=== PATIENT | female | born 1965 | race Caucasian/White ===

== ENCOUNTER 2019-11-11 11:30 | Outpatient (CLI) | payer OTHER, SELFPAY ==
--- NOTE | ~2019-11-11 | MM_ITS ---
EXAMINATION: MM screening mae BI w avinash HISTORY: Screening mammogram TECHNIQUE: Craniocaudal and mediolateral oblique 3-D tomosynthesis images were obtained and synthetic 2-D images were generated. CAD analysis was submitted and interpreted. COMPARISON: Comparison to multiple prior studies sequentially, with oldest reviewed study dated 03/2017. BREAST PARENCHYMAL COMPOSITION: There are scattered areas of fibroglandular density. FINDINGS: There is no evidence of suspicious mass, calcification, or architectural distortion to sugg est malignancy in either breast. There has been no suspicious interval change. IMPRESSION: 1. No mammographic evidence of malignancy. 2. Recommend routine screening mammography in one year. BI-RADS Category 1: Negative Reviewed, dictated and finalized at location A. 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
== END 2019-11-11 11:31 | disposition home or self-care (01) ==
PROVIDERS: PCP Family Medicine; Visit Provider Student in an Organized Health Care Education/Training Program
DX: Z12.31 Encounter for screening mammogram for malignant neoplasm of breast (principal)
CPT/HCPCS: 77063; 77067

== ENCOUNTER 2020-09-29 09:46 | Emergency (ER) | payer OTHER, SELFPAY ==
[2020-09-29 10:03] VITALS: BP 118/73; PULSE 66; RESP 18; TEMP 36.2; O2SAT 98
--- NOTE | 2020-09-29 11:45 | ED.DENTAL ---
HPI - Dental/Oral General Chief complaint: Dental/Oral Stated complaint: tooth pain/diarrhea Time Seen by Provider: 09/29/20 10:23 Source: patient Mode of arrival: ambulatory Limitations: no limitations History of Present Illness HPI Narrative: Patient is a 54-year-old female who presents to emergency department for evaluation of left-sided dental pain has been present for roughly a week has also been having some intermittent diarrhea patient denies any sick contacts rectal bleeding or melena. Patient notes that she has had some slight congestion and ear pain but is unsure as to whether or not this is attributable to her dental pain all of her symptoms began to begin when she had dental pain Related Data Home Medications Medication Instructions Recorded Confirmed amlodipine 5 mg tablet 5 mg PO DAILY 11/03/19 aspirin 81 mg tablet,delayed 81 mg PO DAILY 11/03/19 release atorvastatin 40 mg tablet 40 mg PO DAILY 11/03/19 carvedilol 12.5 mg tablet 12.5 mg PO Q12H 11/03/19 chlorthalidone 25 mg tablet 25 mg PO DAILY 11/03/19 hydrocortisone applic TOPICAL 09/29/20 metformin mg 09/29/20 Allergies Allergy/AdvReac Type Severity Reaction Status Date / Time sertraline AdvReac Intermediate Itching Verified 09/29/20 10:13 Review of Systems Review of Systems: All systems reviewed & are unremarkable except as noted in HPI and below PMFSH Past Medical History Medical History (Updated 09/29/20 @ 11:50 by Zain Vital PA-C) Diabetes Diarrhea High cholesterol Hypertension Vaginal delivery x 3 Surgical History Surgical History History of dilation and curettage History of intravascular stent placement History of tubal ligation Family History Family History Grandparent Diabetes mellitus Mother Hypertension Social History Social History Smoking status: Current every day smoker Second hand tobacco smoke exposure: No Alcohol intake: never Gender identity (if verbalized by the patient): Female Exam Narrative: Exam Narrative: GENERAL: Well-appearing, well-nourished, and in no acute distress. HEAD: Normocephalic, atraumatic. EYES: PERRLA and EOMI. ENT: Nares clear, no rhinorrhea or epistaxis. Mucous membranes moist. Patient with dental caries on the left side no swelling of the gums or face floor of the mouth is soft uvula is midline no trismus or drooling CHEST: Clear to auscultation. No respiratory distress. No wheezes rales or rhonchi HEART: Regular rate and rhythm. No murmur heard. Normal peripheral pulses. ABDOMEN: Soft, nontender, nondistended SKIN: Warm, dry, no rash. NEURO: No focal deficits. Alert and oriented x3. PSYCH: Normal mood and affect. Course Course Emergency Course: Patient will be referred back to primary care and dentistry for further evaluation of her symptoms will be treated symptomatically felt appropriate for outpatient reevaluation afebrile nontoxic-appearing no distress tolerating p.o. intake. Patient agrees with this plan she is afebrile nontoxic-appearing no distress is noted and has been provided with reasons to return Vital Signs Vital signs: Vital Signs Temperature 97.1 F L 09/29/20 10:03 Pulse Rate 66 09/29/20 10:03 Respiratory Rate 18 09/29/20 10:03 Blood Pressure 118/73 09/29/20 10:03 Pulse Oximetry 98 09/29/20 10:03 Temperature 97.1 F L 09/29/20 10:03 Pulse Rate 66 09/29/20 10:03 Respiratory Rate 18 09/29/20 10:03 Blood Pressure 118/73 09/29/20 10:03 Pulse Oximetry 98 09/29/20 10:03 MDM - Dental/Oral MDM Narrative Medical decision making narrative: Patient will be treated for her dental complaints as well as symptomatically for other complaints advised to return if symptoms worsen or concerns Discharge Plan Discharge Clinical Impression: Dental car
[2020-09-29 12:14] VITALS: BP 132/64; PULSE 68; RESP 17; O2SAT 100
== END 2020-09-29 12:15 | disposition home or self-care (01) ==
PROVIDERS: Emergency Provider Emergency Medicine; PCP Family Medicine
DX: K02.9 Dental caries, unspecified (principal); R19.7 Diarrhea, unspecified; E11.9 Type 2 diabetes mellitus without complications; E78.00 Pure hypercholesterolemia, unspecified; I10 Essential (primary) hypertension; Z79.82 Long term (current) use of aspirin; Z79.84 Long term (current) use of oral hypoglycemic drugs; F17.200 Nicotine dependence, unspecified, uncomplicated
CPT/HCPCS: 99283

== ENCOUNTER 2020-10-04 08:44 | Emergency (ER) | payer OTHER, SELFPAY ==
--- NOTE | ~2020-10-04 | XR_ITS ---
EXAMINATION: XR chest 2V DATE: 10/04/2020 09:14 INDICATION: Right posterior chest pain. TECHNIQUE: Frontal and lateral views of the chest were obtained. COMPARISON: Chest 2 views 09/25/2016, CT abdomen and pelvis 11/30/2016 FINDINGS: The chest demonstrates clear lungs without pneumonia, pleural effusion, or pneumothorax. Th e heart size is normal. There is mild chronic anterior wedging of T11 and T12 vertebral bodies. IMPRESSION: 1. No acute cardiopulmonary disease. Reviewed, dictated and finalized at location B. MANAGER
--- NOTE | ~2020-10-04 | CT_ITS ---
EXAMINATION: CTA chest PE protocol EXAM DATE: 10/04/2020 09:59 INDICATION: Chest pain with shortness of air. TECHNIQUE: Spiral CTA of the chest (pulmonary arteries) was performed with 100 cc Omnipaque 350 intr avenous contrast injection. Images were acquired during the pulmonary arterial phase. Coronal maxi mum intensity projection 3D-reconstructions were created by the technologist on dedicated workstation . Axial, coronal and sagittal reformatted images were reviewed. The dose-length product (DLP) for t his examination was 140.42 mGy-cm. The exposure was tailored according to patient size (auto mA exp osure control), and iterative reconstruction (ASIR) was used as additional dose reduction technique. There is no prior study for comparison. FINDINGS: Mild to moderate apical emphysema. Pulmonary arteries are well opacified and without intral uminal filling defects. No thoracic aortic dissection. The lungs are clear. There are no pleural or pericardial effusions. Tracheobronchial tree is patent. There is no mediastinal, hilar or axi llary lymphadenopathy. There is no pneumothorax. Heart normal in size. No evidence of coronary arterial calcification. Upper abdomen is unremarkable. There is thoracic spondylosis without osteo blastic or osteolytic lesions identified. IMPRESSION: No pulmonary emboli or acute cardiopulmonary findings. Mild to moderate emphysema. Reviewed, dictated and finalized at location A. 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 Mild to mode rate emphysema.
[2020-10-04 08:49] VITALS: BP 154/77; PULSE 71; RESP 15; TEMP 36.6; O2SAT 99
--- NOTE | 2020-10-04 08:49 | ECG_ITS ---
Measurements Intervals [place] Rate: 72 P: 34 CA: 206 QRS: -13 QRSD: 89 T: 13 QT: 390 QTc: 428 Interpretive Statements SINUS RHYTHM LEFT VENTRICULAR HYPERTROPHY AND ST-T CHANGE CANNOT RULE OUT SEPTAL INFARCT, AGE INDETERMINATE BASELINE ARTIFACT- I, II, AVR, AVL, AVF, V1-V3 ABNORMAL ECG Electronically Signed On 10-04-2020 9:01:03 OPHTHALMIC AIDE by Venkata Holloway D.O.
[2020-10-04 08:56] VITALS: PULSE 62
[2020-10-04] MEDS: ASPIRIN 81 MG CHEWABLE TABLET 243 MG PO (09:00)
[2020-10-04 09:05] LABS: Basophils Absolute Auto 0.1 K/mm3 (0.0-0.1); Basophils Percent Auto 1.4 % (0.2-1.2); Eosinophils Absolute Auto 0.5 K/mm3 (0-0.3); Eosinophils Percent Auto 7.1 % (0-4.4); Hematocrit 40.8 % (37.0-47.0); Hemoglobin 14.4 g/dL (12.0-15.0); Immature Granulocyte Absolute 0.02 K/mm3 (0.00-0.031); Immature Granulocyte Percent A 0.3 % (0-0.5); Lymphocytes Absolute Auto 2.14 K/mm3 (0.9-3.2); Lymphocytes Percent Auto 28.2 % (18.3-44.2); Mean Corpuscular HGB Conc 35.3 g/dl (32-36); Mean Corpuscular Volume 87.7 fl (80-100); Mean Platelet Volume 9.4 fl (7.4-10.4); Monocytes Absolute Auto 0.8 K/mm3 (0.1-0.6); Monocytes Percent Auto 11.1 % (2.6-8.5); Neutrophils Percent Auto 51.9 % (45.5-73.1); Platelet Count Result 295 k/mm3 (150-375); Red Blood Count 4.65 M/mm3 (4.2-5.4); White Blood Count 7.6 K/mm3 (4.5-10.0)
[2020-10-04 09:15] LABS: INR 0.9; Partial Thromboplastin Time 25.3 SECONDS (22.3-36.8); Prothrombin Time 12.4 Seconds (11.1-14.7)
[2020-10-04] MEDS: KETOROLAC 15 MG/ML VIAL (*BKC) IV PUSH (09:16)
[2020-10-04 09:19] LABS: D Dimer 0.64 ug/mL (<0.48)
[2020-10-04 09:23] LABS: Anion Gap 9 mmol/L (8-16); Blood Urea Nitrogen 15 mg/dL (7-17); Calcium 9.9 mg/dL (8.4-10.2); Carbon Dioxide 31 mmol/L (22-30); Chloride 93 mmol/L (98-107); Estimated Glomerular Filt Rate > 60; Glucose 124 mg/dL (65-105); Potassium 2.7 mmol/L (3.4-5.0); Sodium 133 mmol/L (137-145)
[2020-10-04 09:29] LABS: Troponin I < 0.012 ng/mL (0.000-0.034)
[2020-10-04] MEDS: POTASSIUM CHLORIDE 20 MEQ TABLET 40 MEQ PO (09:41)
[2020-10-04 09:42] VITALS: BP 159/84; PULSE 69; RESP 18; O2SAT 97
--- NOTE | 2020-10-04 10:32 | ED.GENADULT ---
HPI - General Adult General Chief complaint: Chest Pain Stated complaint: chest tightness Time Seen by Provider: 10/04/20 08:52 History of Present Illness HPI narrative: Patient is a 54-year-old female who presents ER with pain in her right back that radiates around her chest wall into her chest causing central chest tightness. Intermittent. Worse with movements. It can occasionally be relieved by stretching. No exertional chest pain shortness of breath. Is also is occurred while at rest. Denies history of coronary disease but does have a renal stent. Denies fevers or chills or sweats. No productive cough. No lower extremity swelling. Pain is sometimes worse with deep breaths. Related Data Home Medications Medication Instructions Recorded Confirmed amlodipine 5 mg tablet 5 mg PO DAILY 11/03/19 aspirin 81 mg tablet,delayed 81 mg PO DAILY 11/03/19 release atorvastatin 40 mg tablet 40 mg PO DAILY 11/03/19 carvedilol 12.5 mg tablet 12.5 mg PO Q12H 11/03/19 chlorthalidone 25 mg tablet 25 mg PO DAILY 11/03/19 hydrocortisone applic TOPICAL 09/29/20 metformin mg 09/29/20 Allergies Allergy/AdvReac Type Severity Reaction Status Date / Time sertraline AdvReac Intermediate Itching Verified 10/04/20 08:57 Review of Systems Review of Systems: All systems reviewed & are unremarkable except as noted in HPI and below Constitutional: Constitutional: Denies chills, Denies fever(s) and Denies weakness ENT: Denies nasal congestion Cardiovascular: Cardiovascular: Reports chest pain, Denies rapid heart rate and Denies radiating jaw, neck or arm pain Respiratory: Respiratory: Denies cough and Denies dyspnea Comments: Pain with deep breath Gastrointestinal: Gastrointestinal: Denies abdominal pain, Reports diarrhea (10/01/2020.), Denies nausea and Denies vomiting [facility] Past Medical History Medical History (Updated 10/04/20 @ 12:21 by Neil Christiansen MD) Diabetes Diarrhea High cholesterol Hypertension Vaginal delivery x 3 Surgical History Surgical History History of dilation and curettage History of intravascular stent placement History of tubal ligation Family History Family History Grandparent Diabetes mellitus Mother Hypertension Social History Social History Smoking status: Current every day smoker Second hand tobacco smoke exposure: No Alcohol intake: never Gender identity (if verbalized by the patient): Female Exam Narrative: Exam Narrative: GENERAL: Well-appearing, well-nourished, and in no acute distress. HEAD: Normocephalic, atraumatic. EYES: PERRL and EOMI. CHEST: Clear to auscultation. No respiratory distress. HEART: Regular rate and rhythm. Normal peripheral pulses. ABDOMEN: Soft, nontender, nondistended. EXTREMITIES: Normal range of motion. No edema. SKIN: Warm, dry, no rash. NEURO: Alert and oriented x3. Course Course Emergency Course: Patient and family informed of results. She is received oral potassium replacement. No PE. I will attempt to contact the patient's primary care physician who cannot be contacted but we did leave a message for his nurse. Recommend discontinuation of chlorthalidone. Will order repeat BMP for Saturday and have labs forwarded to the PCPs office. Patient has scheduled follow-up on 10/10/20. Vital Signs Vital signs: Vital Signs Temperature 97.8 F 10/04/20 08:49 Pulse Rate 71 10/04/20 08:49 Respiratory Rate 15 10/04/20 08:49 Blood Pressure 154/77 H 10/04/20 08:49 Pulse Oximetry 99 10/04/20 08:49 Temperature 97.8 F 10/04/20 08:49 Pulse Rate 60 10/04/20 11:54 Respiratory Rate 13 10/04/20 11:54 Blood Pressure 112/70 10/04/20 11:54 Pulse Oximetry 98 10/04/20 11:54 Medical Decision Making Vital Signs Vital Signs: Vital Signs Temp
[2020-10-04 10:50] VITALS: PULSE 61; RESP 15; O2SAT 99
[2020-10-04 11:54] VITALS: BP 112/70; PULSE 60; RESP 13; O2SAT 98
[2020-10-04 12:18] LABS: Troponin I < 0.012 ng/mL (0.000-0.034)
[2020-10-04 12:36] VITALS: BP 97/61; PULSE 66; RESP 24; O2SAT 99
== END 2020-10-04 12:37 | disposition home or self-care (01) ==
PROVIDERS: Emergency Provider Emergency Medicine; PCP Family Medicine
DX: E87.6 Hypokalemia (principal); R25.2 Cramp and spasm; E11.9 Type 2 diabetes mellitus without complications; E78.00 Pure hypercholesterolemia, unspecified; I10 Essential (primary) hypertension; F17.200 Nicotine dependence, unspecified, uncomplicated; Z79.84 Long term (current) use of oral hypoglycemic drugs; Z79.82 Long term (current) use of aspirin; R94.31 Abnormal electrocardiogram [ECG] [EKG]; I51.7 Cardiomegaly; J43.9 Emphysema, unspecified
CPT/HCPCS: 36415; 71046; 71275; 80048; 84484; 85025; 85380; 85610; 85730; 93005; 96374; 99284; A9270; J1885; Q9967

== ENCOUNTER 2021-06-25 15:28 | Emergency (ER) | payer OTHER, SELFPAY ==
[2021-06-25 15:29] VITALS: BP 153/89; PULSE 81; RESP 18; TEMP 37.1; O2SAT 100
[2021-06-25] MEDS: KETOROLAC (*BKC) 60 MG/2 ML VIAL IM (16:14)
--- NOTE | 2021-06-25 20:43 | ED.DENTAL ---
HPI - Dental/Oral General Chief complaint: Dental/Oral Stated complaint: left lower toothache Time Seen by Provider: 06/25/21 15:34 Source: patient Mode of arrival: ambulatory Limitations: no limitations History of Present Illness HPI Narrative: Patient presents with chief complaint of abscess to the lower breast gumline. She states that the removal was present and antibiotic. She reports that she does not have a dentist presently. Patient states the pain is very intense. She denies any fever, chills, nausea, vomiting, diarrhea. Patient reports having diabetes. Related Data Home Medications Medication Instructions Recorded Confirmed amlodipine 5 mg tablet 5 mg PO DAILY 11/03/19 aspirin 81 mg tablet,delayed 81 mg PO DAILY 11/03/19 release atorvastatin 40 mg tablet 40 mg PO DAILY 11/03/19 carvedilol 25 mg tablet 25 mg PO Q12H 11/08/20 isosorbide dinitrate 30 mg tablet 30 mg PO BID 11/08/20 lactobacillus combination no.9 4 4,000 mmu cells PO DAILY 11/08/20 billion cell capsule metformin 500 mg tablet mg PO BID tablet 11/08/20 [id number] tablet 1 tablet PO DAILY 11/08/20 Allergies Allergy/AdvReac Type Severity Reaction Status Date / Time sertraline AdvReac Intermediate Itching Verified 06/25/21 15:33 Review of Systems Review of Systems: CONSTITUTIONAL: Denies fever, chills, or sweats. EYES: Denies visual changes, redness, or discharge. ENT: Reports dental pain denies rhinorrhea, congestion, sore throat, or otalgia. CARDIOVASCULAR: Denies chest pain, palpitations, or edema. RESPIRATORY: Denies cough or dyspnea. GASTROINTESTINAL: Denies abdominal pain, nausea, vomiting, or diarrhea. GENITOURINARY: Denies dysuria or hematuria. SKIN: Denies rash or itching. MUSCULOSKELETAL: Denies back pain, joint pain, or myalgia. NEUROLOGIC: Denies headache, numbness, dizziness, or weakness. PSYCHIATRIC: Denies anxiety or depression. [facility] Past Medical History Medical History (Updated 06/25/21 @ 16:39 by Darrel Bui PA-C) Diabetes Diarrhea High cholesterol Hypertension Vaginal delivery x 3 Surgical History Surgical History History of dilation and curettage History of intravascular stent placement History of tubal ligation Family History Family History Grandparent Diabetes mellitus Mother Hypertension Social History Social History Smoking status: Light tobacco smoker Second hand tobacco smoke exposure: No Alcohol intake: never Gender identity (if verbalized by the patient): Female Exam Narrative: GENERAL: Well-appearing, well-nourished, and tearful. HEAD: Normocephalic, atraumatic. EYES: PERRLA and EOMI. ENT: Nares clear, no rhinorrhea or epistaxis. Mucous membranes moist. Oropharynx without tonsillar hypertrophy exudate or other lesions. Bilateral TMs pearly hardy nonbulging. There is tenderness with slight erythema to the lower left gumline. Patient has diffuse cavities throughout with some missing teeth. No drainage noted presently. NECK: Supple. Range of motion intact. CHEST: Clear to auscultation. No respiratory distress. No wheezes rales or rhonchi HEART: Regular rate and rhythm. No murmur heard. Normal peripheral pulses. ABDOMEN: Soft, nontender, nondistended, normal active bowel sounds. EXTREMITIES: Normal range of motion. No edema. SKIN: Warm, dry, no rash. NEURO: No focal deficits. Alert and oriented x3. PSYCH: Normal mood and affect. Course Vital Signs Vital signs: Vital Signs Temperature 98.7 F 06/25/21 15:29 Pulse Rate 81 06/25/21 15:29 Respiratory Rate 18 06/25/21 15:29 Blood Pressure 153/89 H 06/25/21 15:29 Pulse Oximetry 100 06/25/21 15:29 Temperature 98.7 F 06/25/21 15:29 Pulse Rate 81 06/25/21 15:29 Respiratory Rate 18 06/25/21 15:29 Blood
== END 2021-06-25 17:00 | disposition home or self-care (01) ==
PROVIDERS: Emergency Provider Emergency Medicine; PCP Family Medicine
DX: K04.7 Periapical abscess without sinus (principal); K08.89 Other specified disorders of teeth and supporting structures; E11.9 Type 2 diabetes mellitus without complications; E78.00 Pure hypercholesterolemia, unspecified; I10 Essential (primary) hypertension; F17.200 Nicotine dependence, unspecified, uncomplicated; Z79.82 Long term (current) use of aspirin; Z79.84 Long term (current) use of oral hypoglycemic drugs
CPT/HCPCS: 96372; 99283; J1885

== ENCOUNTER 2021-06-27 10:09 | Emergency (ER) | payer OTHER, SELFPAY ==
--- NOTE | ~2021-06-27 | CT_ITS ---
EXAMINATION: CT facial bones w con DATE: 06/27/2021 12:59 INDICATION: Jaw abscess. Left facial pain. TECHNIQUE: High resolution computed tomography (CT) of the facial bones was performed with 75 mL Omni paque-350 intravenous contrast. Additional sagittal and coronal reconstructions were performed. Autom ated exposure control and iterative reconstruction technique were employed. The dose-length product w as 309.20 mGy-cm. COMPARISON: None FINDINGS: There is likely fluid soaked gauze/packing material within the left buccal cavity. There appears to b e ulceration which extends deep to the gum line at the left lateral margin of the mandible. There is poor dentition with multiple absent teeth, multiple dental restorations and a few dental caries. The most prominent dental Alix is at the posterior most left mandibular premolar with associated periapi armida erosion at its root which erodes into the left mental foramen. There is overlying enhancing phleg monous change along the lateral margin of the left mandibular ramus but no discrete abscess. Maxillof acial bones are otherwise unremarkable. No fracture. The orbits are normal. Mild mucoperiosteal thick ening at the right maxillary and bilateral ethmoid sinuses. Mastoid air cells and middle ear cavities are clear. No pathologically enlarged maxillofacial or cervical lymphadenopathy. Mild atheroscleroti c calcifications without hemodynamically significant stenosis of the bilateral carotid bulbs and bila teral carotid siphons. The visualized musculature of the head and neck appears otherwise unremarkable . Moderate cervical spondylosis. IMPRESSION: 1. Dental caries and periapical abscess involving the posterior most left mandibular premolar with er osion extending to the left mental foramen with overlying enhancing phlegmonous change along the late ral margin of the left mandible ramus but without a drainable abscess. Reviewed, dictated and finalized at location A. IMPRESSION: 1. Dental caries and periapical abscess involving the posterior most left zion bular premolar with erosion extending to the left mental foramen with overlying enhancing phlegmonous change along the lateral margin of the left mandible lauro us but without a drainable abscess.
[2021-06-27 10:21] VITALS: BP 129/73; PULSE 74; RESP 18; TEMP 36.7; O2SAT 98
[2021-06-27] MEDS: ONDANSETRON HCL ODT 4 MG TABLET PO (10:39)
--- NOTE | 2021-06-27 11:35 | ED.DENTAL ---
HPI - Dental/Oral General Chief complaint: Dental/Oral Stated complaint: tooth infection Time Seen by Provider: 06/27/21 10:18 Source: patient and RN notes reviewed Mode of arrival: ambulatory Limitations: no limitations History of Present Illness HPI Narrative: This is a 55 year old female who presents for evaluation of left jaw swelling. Patient was started on augmentin 2 days ago for possible dental infection. She reports nausea and fatigue but denies fever, chills or shortness of breath. She denies pain with swallowing. Related Data Home Medications Medication Instructions Recorded Confirmed amlodipine 5 mg tablet 5 mg PO DAILY 11/03/19 aspirin 81 mg tablet,delayed 81 mg PO DAILY 11/03/19 release atorvastatin 40 mg tablet 40 mg PO DAILY 11/03/19 carvedilol 25 mg tablet 25 mg PO Q12H 11/08/20 isosorbide dinitrate 30 mg tablet 30 mg PO BID 11/08/20 lactobacillus combination no.9 4 4,000 mmu cells PO DAILY 11/08/20 billion cell capsule metformin 500 mg tablet mg PO BID tablet 11/08/20 [id number]-[id number] tablet 1 tablet PO DAILY 11/08/20 Allergies Allergy/AdvReac Type Severity Reaction Status Date / Time sertraline AdvReac Intermediate Itching Verified 06/27/21 10:24 Review of Systems Review of Systems: All systems reviewed & are unremarkable except as noted in HPI and below PMFSH Past Medical History Medical History (Updated 06/27/21 @ 14:10 by Lorena Pham MD) Diabetes Diarrhea High cholesterol Hypertension Vaginal delivery x 3 Surgical History Surgical History History of dilation and curettage History of intravascular stent placement History of tubal ligation Family History Family History Grandparent Diabetes mellitus Mother Hypertension Social History Social History Smoking status: Light tobacco smoker Second hand tobacco smoke exposure: No Alcohol intake: never Gender identity (if verbalized by the patient): Female Exam Const: General: no acute distress and alert Orientation/consciousness: patient oriented x3 HENMT: Head: normocephalic and atraumatic Ears: TM's normal bilaterally Mouth: Yes lip normal, Yes tongue normal (soft floor of tongue), Yes moist mucous membranes, No trismus, No restricted motion and Yes other (left mandible swelling and tenderness) Teeth and gingiva: caries and other (gum swelling at tooth #20, tenderness) Throat: posterior oropharynx normal, tonsils normal and uvula midline Eyes: Pupils: Equal, round and reactive pupils present EOM: EOMs intact bilaterally Resp: Effort & Inspection: normal respiratory effort and no retractions Auscultation: clear to auscultation bilaterally Cardio: Rate: regular rate Rhythm: regular rhythm Heart sounds: no murmurs Skin: General skin exam: normal color Rashes: no rashes Neuro: General: patient oriented x3, moves all extremities and CN's II-XI intact bilaterally Extrem: General: normal to inspection Psych: Mental Status: mental status grossly normal Affect: normal affect Course Reevaluation(s) Reevaluation #1: PAtient was given dose of clindamycin in ER. I was able to express any purulent discharge . CT shows there is no drainable abscess so she will be changed to different antibiotics. Date: 06/27/21 Time: 14:08 Vital Signs Vital signs: Vital Signs Temperature 98.1 F 06/27/21 10:21 Pulse Rate 74 06/27/21 10:21 Respiratory Rate 18 06/27/21 10:21 Blood Pressure 129/73 06/27/21 10:21 Pulse Oximetry 98 06/27/21 10:21 Temperature 98.4 F 06/27/21 14:53 Pulse Rate 57 L 06/27/21 14:53 Respiratory Rate 18 06/27/21 14:53 Blood Pressure 98/57 L 06/27/21 14:53 Pulse Oximetry 97 06/27/21 14:53 Procedures Abscess I/D oral: Date of Incision: 06/27/21
[2021-06-27 12:18] LABS: Basophils Absolute Auto 0.1 K/mm3 (0.0-0.1); Basophils Percent Auto 0.9 % (0.2-1.2); Eosinophils Absolute Auto 0.3 K/mm3 (0-0.3); Eosinophils Percent Auto 2.8 % (0-4.4); Hematocrit 39.6 % (37.0-47.0); Hemoglobin 13.7 g/dL (12.0-15.0); Immature Granulocyte Absolute 0.02 K/mm3 (0.00-0.031); Immature Granulocyte Percent A 0.2 % (0-0.5); Lymphocytes Absolute Auto 2.74 K/mm3 (0.9-3.2); Lymphocytes Percent Auto 31.1 % (18.3-44.2); Mean Corpuscular HGB Conc 34.6 g/dl (32-36); Mean Corpuscular Hemoglobin 31.7 pg (26-34); Mean Corpuscular Volume 91.7 fl (80-100); Mean Platelet Volume 9.5 fl (7.4-10.4); Monocytes Percent Auto 10.9 % (2.6-8.5); Neutrophils Absolute Auto 4.8 K/mm3 (1.3-6.7); Neutrophils Percent Auto 54.1 % (45.5-73.1); Platelet Count Result 253 k/mm3 (150-375); Red Blood Count 4.32 M/mm3 (4.2-5.4); Red Cell Distribution Width 12.6 % (11.5-14.5); White Blood Count 8.8 K/mm3 (4.5-10.0)
[2021-06-27 12:27] LABS: Alanine Aminotransferase 70 U/L (4-35); Albumin Level 4.4 g/dL (3.5-5.1); Alkaline Phosphatase 107 U/L (38-126); Anion Gap 9 mmol/L (8-16); Aspartate Amino Transferase 50 U/L (14-36); Bilirubin,Total 0.7 mg/dL (0.2-1.3); Blood Urea Nitrogen 11 mg/dL (7-17); Calcium 9.7 mg/dL (8.4-10.2); Carbon Dioxide 26 mmol/L (22-30); Chloride 106 mmol/L (98-107); Estimated Glomerular Filt Rate > 60; Glucose 117 mg/dL (65-110); Potassium 4.3 mmol/L (3.4-5.0); Sodium 141 mmol/L (137-145)
[2021-06-27 14:53] VITALS: BP 98/57; PULSE 57; RESP 18; TEMP 36.9; O2SAT 97
== END 2021-06-27 14:55 | disposition home or self-care (01) ==
PROVIDERS: Emergency Provider General Practice; PCP Family Medicine
DX: K08.89 Other specified disorders of teeth and supporting structures (principal); K05.319 Chronic periodontitis, localized, unspecified severity; E11.9 Type 2 diabetes mellitus without complications; Z79.84 Long term (current) use of oral hypoglycemic drugs; I10 Essential (primary) hypertension; E78.5 Hyperlipidemia, unspecified
CPT/HCPCS: 36415; 41800; 70487; 80053; 85025; 96372; 99284; A9270; Q9967

== ENCOUNTER 2021-07-29 11:37 | Outpatient (CLI) | payer OTHER, SELFPAY ==
--- NOTE | ~2021-07-29 | MM_ITS ---
EXAMINATION: MM screening mae BI w avinash HISTORY: Screening mammogram, family history of breast cancer in her sister. TECHNIQUE: Craniocaudal and mediolateral oblique 3-D tomosynthesis images were obtained and synthetic 2-D images were generated. CAD analysis was submitted and interpreted. COMPARISON: 11/11/2019, 10/31/2018 BREAST PARENCHYMAL COMPOSITION: There are scattered areas of fibroglandular density. FINDINGS: There is no evidence of suspicious mass, calcification, or architectural distortion to sugg est malignancy in either breast. There has been no suspicious interval change. IMPRESSION: 1. No mammographic evidence of malignancy. 2. Recommend routine screening mammography in one year. BI-RADS Category 1: Negative Reviewed, dictated and finalized at location A. 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
== END 2021-07-29 11:38 | disposition home or self-care (01) ==
LOC: ANHIMG 11:38
PROVIDERS: PCP Family Medicine; Visit Provider Student in an Organized Health Care Education/Training Program
DX: Z12.31 Encounter for screening mammogram for malignant neoplasm of breast (principal)
CPT/HCPCS: 77063; 77067

== ENCOUNTER 2022-05-01 00:59 | Day surgery (SDC) | payer OTHER, SELFPAY ==
[2022-04-23 15:18] VITALS: BMI 27.6
[2022-05-01 09:17] VITALS: BP 117/75; PULSE 66; RESP 16; TEMP 36.6; O2SAT 98
[2022-05-01] MEDS: LACTATED RINGERS 1,000 ML 150 ML IV CONT (09:29)
[2022-05-01 09:30] LABS: Glucose Point of Care 145 mg/dl (65-105)
--- NOTE | 2022-05-01 10:00 | PM.HPGS ---
History of Present Illness History of Present Illness Consent: Risks, benefits, and alternatives have been discussed and questions answered. Patient agrees to proceed with procedure. Chief complaint: hemorrhoid, blood in stool Narrative: Ju Mariscal is a 56 year old female with blood in stool probably from hemorrhoids, also she is due to have another colonoscopy Review of Systems Constitutional: Constitutional: Denies headache(s) and Denies weakness Eyes: Eyes: Denies blurry vision ENT: Reports Normal hearing present, Denies headache(s) and Denies neck pain Cardiovascular: Cardiovascular: Denies chest pain and Denies dyspnea Respiratory: Respiratory: Denies dyspnea Gastrointestinal: Gastrointestinal: Reports no additional gastrointestinal complaints Genitourinary: Genitourinary: Denies dysuria Musculoskeletal: Musculoskeletal: Denies neck pain Integumentary/Breasts: Skin/Breast: Denies dry skin Neurologic: Reports Normal hearing present, Denies headache(s) and Denies weakness Psychiatric: Psychiatric: Denies anxiety Endocrine: Endocrine: Denies change in body appearance Hematologic/Lymphatic: Hematologic/Lymphatic: Denies easy bleeding Allergic/Immunologic: Allergic/Immunologic: Denies urticaria [facility] Past Medical History Medical History (Updated 05/01/22 @ 10:01 by Tk Zavala MD) Colon cancer screening Diabetes Diarrhea Hematochezia Hemorrhoid High cholesterol Hypertension Vaginal delivery x 5 Surgical History Surgical History (Reviewed 03/15/22 @ 10:32 by Yvonne Liu [facility]) History of dilation and curettage History of intravascular stent placement History of tubal ligation Family History Family History (Reviewed 03/15/22 @ 10:32 by Yvonne Liu [facility]) Grandparent Diabetes mellitus Mother Hypertension Social History Social History Smoking status: Light tobacco smoker Tobacco type: cigarettes Second hand tobacco smoke exposure: No Alcohol intake: former Substance use: never Substance use type: does not use Living arrangements: with family Gender identity (if verbalized by the patient): Female Spiritual care concerns: No Meds Home Medications and Allergies Home Medications Medication Instructions Recorded Confirmed Type amlodipine 5 mg tablet 5 mg PO DAILY 11/03/19 04/23/22 History aspirin 81 mg tablet,delayed 81 mg PO DAILY 11/03/19 04/23/22 History release atorvastatin 40 mg tablet 40 mg PO DAILY 11/03/19 04/23/22 History potassium chloride 20 mEq 20 meq PO BID #10 tabs 10/04/20 04/23/22 Rx tablet,extended release carvedilol 25 mg tablet 25 mg PO Q12H 11/08/20 05/01/22 History isosorbide dinitrate 30 mg tablet 30 mg PO BID 11/08/20 05/01/22 History metformin 500 mg tablet 500 mg PO BID 11/08/20 04/23/22 History cnzusvsnleia-rgkygmia-cpklfp tablet 1 tablet PO DAILY 11/08/20 04/23/22 History Allergies Allergy/AdvReac Type Severity Reaction Status Date / Time sertraline AdvReac Intermediate Itching Verified 05/01/22 09:13 Vital Signs Vital Signs - 24 hr 05/01/22 09:17 Temperature 97.8 F Pulse Rate 66 Respiratory Rate 16 Blood Pressure 117/75 Pulse Oximetry 98 Oxygen Delivery Room Air Exam Const: General: comfortable and no acute distress HENMT: General nose exam: Normal nares present Eyes: General: appearance normal, both eyes and all related structures Neck: Neck: no JVD Resp: Auscultation: clear to auscultation bilaterally Cardio: Rate: regular rate Rhythm: regular rhythm GI: Inspection: non-distended GI Palp: Yes Soft to palpation Skin: General skin exam: normal color Neuro: General: gait normal Speech: normal speech Extrem: General: normal to inspection Psych: Mental Status: mental status grossly normal Assessment and Plan Assessment and plan (1) Hemorrhoid: Code(s): K64.9 - Unspecified hemo
--- NOTE | 2022-05-01 10:06 | WPDANESEPPF ---
Anes - Initial Pre Proc Eval Procedure: Operation Date: 05/01/22 10:30 Proposed Procedures p Colonoscopy - Tk Zavala MD s [facility] Hemorrhoid Treatment - kT Zavala MD Date/Time: 05/01/22 10:06 Surgeon: Tk Zavala MD Pre Op Diagnosis: hemorrhoid, blood in stool Patient Data Age: 56 Gender: F Height: 1.47 m Weight: 55.9 kg Last Vital Signs Temp 97.8 F 05/01/22 09:17 Pulse 66 05/01/22 09:17 Resp 16 05/01/22 09:17 BP 117/75 05/01/22 09:17 Pulse Ox 98 05/01/22 09:17 O2 Del Method Room Air 05/01/22 09:17 Allergies Allergy/AdvReac Type Severity Reaction Status Date / Time sertraline AdvReac Intermediate Itching Verified 05/01/22 09:13 Home Medications Medication Instructions Recorded Confirmed Type amlodipine 5 mg tablet 5 mg PO DAILY 11/03/19 04/23/22 History aspirin 81 mg tablet,delayed 81 mg PO DAILY 11/03/19 04/23/22 History release atorvastatin 40 mg tablet 40 mg PO DAILY 11/03/19 04/23/22 History potassium chloride 20 mEq 20 meq PO BID #10 tabs 10/04/20 04/23/22 Rx tablet,extended release carvedilol 25 mg tablet 25 mg PO Q12H 11/08/20 05/01/22 History isosorbide dinitrate 30 mg tablet 30 mg PO BID 11/08/20 05/01/22 History metformin 500 mg tablet 500 mg PO BID 11/08/20 04/23/22 History riscemdyvkfn-dzhnzwok-tsbkfb tablet 1 tablet PO DAILY 11/08/20 04/23/22 History Laboratory Tests 05/01/22 09:27 POC Capillary Glucose 145 mg/dl H mg/dl (65-105) Patient hx anesthesia problems: none Family hx anesthesia problems: none Results Review: All pre-operative results and documents have been reviewed as part of the pre-operative evaluation. [facility] Past Medical History Medical History (Updated 05/01/22 @ 10:01 by Tk Zavala MD) Colon cancer screening Diabetes Diarrhea Hematochezia Hemorrhoid High cholesterol Hypertension Vaginal delivery x 5 Surgical History Surgical History History of dilation and curettage History of intravascular stent placement History of tubal ligation Family History Family History Grandparent Diabetes mellitus Mother Hypertension Social History Social History Smoking status: Light tobacco smoker Tobacco type: cigarettes Second hand tobacco smoke exposure: No Alcohol intake: former Substance use: never Substance use type: does not use Living arrangements: with family Gender identity (if verbalized by the patient): Female Spiritual care concerns: No Anes - Eval Final PreProcedure Day of Procedure 05/01/22 10:06 Patient weight: normal Heart: regular rate and rhythm Lungs: clear to auscultation Airway: Mallampati scale class II Neurological: alert and oriented Last oral intake: >/= 8 hours ASA classification: III Emergent: no Anesthetic plan: proceed Anesthesia type and monitoring: general GIVS and standard monitoring Results Review: All pre-operative results and documents have been reviewed as part of the pre-operative evaluation. Informed Consent: The patient's anesthetic plan and its attendant risks and benefits were discussed with the patient/family/POA. Questions were solicited and answers provided to the satisfaction of the patient/family/POA.
[2022-05-01 10:24] VITALS: BP 79/44; PULSE 65; RESP 14; O2SAT 94
--- NOTE | 2022-05-01 10:25 | W.PM.PROC2 ---
Procedure Note - Detailed Date of Procedure 05/01/22 Pre-op Diagnosis hemorrhoid, blood in stool Post-op Diagnosis Same Procedure Performed IRC of internal hemorrhoids Surgeon Tk Zavala MD Findings grade II hemorrhoids, no fissure, no lesions. I introduced anoscope and then advanced IRC probe, hemorrhoids treated 1.5 seconds x7, no complications Description of Procedure as above
[2022-05-01 10:34] VITALS: BP 95/58; PULSE 62; RESP 20; O2SAT 96
[2022-05-01 10:44] VITALS: BP 103/75; PULSE 61; RESP 21; O2SAT 98
== END 2022-05-01 11:12 | disposition home or self-care (01) ==
PROVIDERS: PCP Family Medicine; Visit Provider Internal Medicine Gastroenterology
PROC: 0DJD8ZZ Inspection of Lower Intestinal Tract, Via Natural or Artificial Opening Endoscopic (ICD-10-PCS; CPT 45378; principal; 2022-05-01 10:30)
PROC: (CPT 46930; 2022-05-01 10:30)
DX: K64.1 Second degree hemorrhoids (principal); Z79.82 Long term (current) use of aspirin; Z79.84 Long term (current) use of oral hypoglycemic drugs; E11.9 Type 2 diabetes mellitus without complications; R19.7 Diarrhea, unspecified; K92.1 Melena; E78.00 Pure hypercholesterolemia, unspecified; I10 Essential (primary) hypertension; F17.210 Nicotine dependence, cigarettes, uncomplicated; K57.30 Diverticulosis of large intestine without perforation or abscess without bleeding; K64.8 Other hemorrhoids; K64.4 Residual hemorrhoidal skin tags
CPT/HCPCS: 45378; 46930; 82948; J2704; J7120

== ENCOUNTER 2022-06-11 16:16 | Emergency (ER) | payer OTHER, SELFPAY ==
[2022-06-11 16:29] VITALS: BP 156/87; PULSE 73; RESP 16; TEMP 36.3; O2SAT 100
--- NOTE | 2022-06-11 16:59 | ED.EAR ---
HPI - Ear Problem General Chief complaint: Ear Stated complaint: Left Ear Irritation Time Seen by Provider: 06/11/22 17:30 Source: patient and RN notes reviewed Mode of arrival: ambulatory Limitations: no limitations History of Present Illness HPI Narrative: 56-year-old female presents concern for bilateral ear pain, nasal congestion, rhinorrhea, cough. Reports 4 days symptoms. Reports her members have similar symptoms. She denies xlfh-zqa-owlmjsy dimension. Denies fever, body aches, chills, sweats, drainage from the ear, decreased hearing. MD Complaint: ear pain Related Data Home Medications Medication Instructions Recorded Confirmed amlodipine 5 mg tablet 5 mg PO DAILY 11/03/19 06/11/22 aspirin 81 mg tablet,delayed 81 mg PO DAILY 11/03/19 06/11/22 release atorvastatin 40 mg tablet 40 mg PO DAILY 11/03/19 06/11/22 carvedilol 25 mg tablet 25 mg PO Q12H 11/08/20 06/11/22 isosorbide dinitrate 30 mg tablet 30 mg PO BID 11/08/20 06/11/22 metformin 500 mg tablet 500 mg PO BID 11/08/20 06/11/22 iqnhkerwqlpj-yhhgjnhg-rmvpbx tablet 1 tablet PO DAILY 11/08/20 06/11/22 Allergies Allergy/AdvReac Type Severity Reaction Status Date / Time sertraline AdvReac Intermediate Itching Verified 06/11/22 16:54 Review of Systems Review of Systems: CONSTITUTIONAL: Denies malaise, chills, sweats, or fever. EYES: Denies visual changes, redness, or discharge. ENT: Reports rhinorrhea, congestion, sinus pain, and sore throat. Reports bilateral ear pain CARDIOVASCULAR: Denies chest pain, palpitations, or edema. RESPIRATORY: Reports cough. Denies dyspnea. GASTROINTESTINAL: Denies abdominal pain, nausea, vomiting, diarrhea SKIN: Denies rash or itching. MUSCULOSKELETAL: Denies myalgia. NEUROLOGIC: Denies headache. All systems reviewed & are unremarkable except as noted in HPI and below PMFSH Past Medical History Medical History (Updated 06/11/22 @ 17:47 by Emilia Mar NP) Colon cancer screening Diabetes Diarrhea Hematochezia Hemorrhoid High cholesterol Hypertension Vaginal delivery x 5 Surgical History Surgical History History of dilation and curettage History of intravascular stent placement History of tubal ligation Family History Family History Grandparent Diabetes mellitus Mother Hypertension Social History Social History Smoking status: Light tobacco smoker Tobacco type: cigarettes Second hand tobacco smoke exposure: No Alcohol intake: former Substance use: never Substance use type: does not use Gender identity (if verbalized by the patient): Female Spiritual care concerns: No Comments At time of signature, agree with nursing past medical, surgical, social and family history. There is no relevant family history pertinent to the presenting complaint Exam Narrative: GENERAL: Well-appearing, well-nourished, and in no acute distress. HEAD: Normocephalic EYES: PERRLA, conjunctivae clear ENT: Nares clear, turbinates edematous, clear discharge. Mucous membranes moist. TM erythematous and bulging bilaterally; no tragal tenderness. Oropharynx not erythematous without lesions. Tonsils not enlarged and without exudate, no drooling, no hoarseness, no trismus, uvula midline. NECK: Supple. No lymphadenopathy CHEST: Clear to auscultation, breath sounds equal. No wheezing, rhonchi, rales, or stridor. No respiratory distress, speaks in full sentences. HEART: Regular rate and rhythm. No murmur heard. SKIN: Warm, dry, no rash. NEURO: Alert and oriented x3. PSYCH: Normal mood and affect Course Course Emergency Course: Patient is aware of diagnosis, understands and agrees to treatment plan. Anticipatory guidance given. Patient agrees to follow-up as directed and is aware of reasons to seek care at the emergency department. Sydnee
== END 2022-06-11 18:06 | disposition home or self-care (01) ==
PROVIDERS: Emergency Provider Nurse Practitioner; PCP Family Medicine
DX: H66.003 Acute suppurative otitis media without spontaneous rupture of ear drum, bilateral (principal); R05.9 Cough, unspecified; Z79.82 Long term (current) use of aspirin; E11.9 Type 2 diabetes mellitus without complications; I10 Essential (primary) hypertension; E78.00 Pure hypercholesterolemia, unspecified; Z72.0 Tobacco use
CPT/HCPCS: 99213; G0463

== ENCOUNTER 2022-10-03 12:27 | Outpatient (CLI) | payer OTHER, SELFPAY ==
--- NOTE | ~2022-10-03 | MM_ITS ---
EXAMINATION: MM screening [facility] BI w avinash HISTORY: Screening mammogram TECHNIQUE: Craniocaudal and mediolateral oblique 3-D tomosynthesis images were obtained and synthetic 2-D images were generated. CAD analysis was submitted and interpreted. COMPARISON: 07/29/2021, 11/11/2019, 10/31/2018 bilateral screening mammogram examinations BREAST PARENCHYMAL COMPOSITION: There are scattered areas of fibroglandular density. FINDINGS: There is no evidence of suspicious mass, calcification, or architectural distortion to sugg est malignancy in either breast. There has been no suspicious interval change. IMPRESSION: 1. No mammographic evidence of malignancy. 2. Recommend routine screening mammography in one year. BI-RADS Category 1: Negative Reviewed, dictated and finalized at location B. HT FOLLOWER
== END 2022-10-03 12:28 | disposition home or self-care (01) ==
LOC: ANHIMG 12:29
PROVIDERS: PCP Family Medicine; Visit Provider Student in an Organized Health Care Education/Training Program
DX: Z12.31 Encounter for screening mammogram for malignant neoplasm of breast (principal)
CPT/HCPCS: 77063; 77067

== ENCOUNTER 2023-12-21 08:45 | Emergency (ER) | payer OTHER, SELFPAY ==
--- NOTE | ~2023-12-21 | XR_ITS ---
XR chest 1V portable DATE: 12/21/2023 10:41 INDICATION: Chest pains TECHNIQUE: Portable AP chest on December 21, 2023 at 1034 hours COMPARISON: Prior examinations available from PACS at this time FINDINGS: Normal heart size. Aortic arch calcification. No hilar or mediastinal enlargement. No pulmonary infiltrate or consolidation, pleural effusion or pulmonary vascular congestion or pneumo thorax. Mild thoracic dextroscoliosis. IMPRESSION: No active cardiopulmonary disease Reviewed, dictated and finalized at location A.
[2023-12-21 08:53] VITALS: BP 150/80; PULSE 75; RESP 19; TEMP 36.4; O2SAT 99
[2023-12-21 10:01] LABS: Appearance Urine Clear (Clear); Bilirubin Urine Negative (Negative); Blood Urine Negative (Negative); Color Urine Yellow (Yellow); Glucose Urine UA Negative (Negative); Ketones Urine Negative (Negative); Leukocyte Esterase Ur Negative LEU/UL (Negative); Nitrate Urine Negative (Negative); Protein Urine Negative (Negative); Specific Grav Ur 1.012 (1.001-1.035); Urobilinogen Urine 0.2 mg/dL (<2.0); pH Urine 5.5 (5.0-9.0)
--- NOTE | 2023-12-21 10:03 | ED.BACK ---
HPI - Back Pain/Injury General Chief Complaint: Back Pain/Injury Stated Complaint: flank pain Time Seen by Provider: 12/21/23 08:52 History of Present Illness HPI Narrative: 58-year-old female presenting to the emergency department for evaluation of left back pain that started on . Patient states she does have history of lower back pain has been taking ibuprofen for this with no improvement. Patient states that she had no recent falls or injuries but had worsening left posterior shoulder upper back pain on . Patient also states that does have some chest pain for the same duration. Related Data Home Medications Medication Instructions Recorded Confirmed amlodipine 5 mg tablet 5 mg PO DAILY 11/03/19 06/11/22 aspirin 81 mg tablet,delayed 81 mg PO DAILY 11/03/19 06/11/22 release atorvastatin 40 mg tablet 40 mg PO DAILY 11/03/19 06/11/22 carvedilol 25 mg tablet 25 mg PO Q12H 11/08/20 06/11/22 isosorbide dinitrate 30 mg tablet 30 mg PO BID 11/08/20 06/11/22 metformin 500 mg tablet 500 mg PO BID 11/08/20 06/11/22 vvkayaqrwuno-gijjzmok-vxevzf tablet 1 tablet PO DAILY 11/08/20 06/11/22 famotidine 20 mg tablet 20 mg PO DAILY 02/21/23 gabapentin 100 mg capsule 100 mg PO BID 02/21/23 muizsmak-weqo-uaqf 8 mg-folic 400 1 tablet PO DAILY 02/21/23 mcg-K 50 mcg-lutein 300 mcg tablet ([facility] [place] [facility]) naproxen 500 mg tablet 500 mg PO BID 02/21/23 Allergies Allergy/AdvReac Type Severity Reaction Status Date / Time sertraline AdvReac Intermediate Itching Verified 12/21/23 08:56 Review of Systems Review of Systems: All systems reviewed & are unremarkable except as noted in HPI and below [facility] Past Medical History Medical History (Updated 12/21/23 @ 14:05 by Ezekiel Mendoza MD) ASCUS of cervix with negative high risk HPV Cystocele with rectocele Diabetes Diarrhea Hematochezia Hemorrhoid High cholesterol History of abnormal cervical Pap smear Hypertension Vaginal delivery x 5 Vaginal Pap smear with ASC-US Surgical History Surgical History History of dilation and curettage History of intravascular stent placement History of tubal ligation Family History Family History Grandparent Diabetes mellitus Mother Hypertension Social History Social History Smoking status: Light tobacco smoker Tobacco type: cigarettes Second hand tobacco smoke exposure: No Alcohol intake: former Alcohol use details: Stop using alcohol 25 years ago Substance use: never Substance use type: does not use Lack of Transportation: No Lack of Food: Never True Current Housing: I Have Housing Concerned About Future Housing: No Difficulty Paying Gas/Electric Bills: No Difficulty Paying for Meds: No Currently Unemployed: No Education: Grade School Difficulty w/ Childcare or Family Care: No Living arrangements: with family Occupation/Education: retired Gender identity (if verbalized by the patient): Female Sexual Orientation (if Verbalized by the Patient): Straight or Heterosexual Spiritual care concerns: No Exam Narrative: APPEARANCE: Well appearing, no pain, no distress, well-nourished. HEAD: normocephalic, atraumatic. EYES: PERRLA/EOMI, conjunctivae clear. NOSE: Normal no drainage EARS:TMS clear with good light reflex. THROAT: Pharynx clear, no exudate. NECK: Supple. No adenopathy, no masses. RESPIRATORY: Airway patent, respirations nonlabored. Clear to auscultation bilaterally, no rales, rhonchi, wheezing. CARDIOVASCULAR: Regular rate and rhythm without murmurs rubs or gallops. ABDOMINAL: Soft, nontender, nondistended, normal bowel sounds MUSCULOSKELETAL: Moves all extremities. Strength/ROM intact, No edema, No calf tenderness. NEURO: Alert. Cranial nerves II through XII intact. Good gait. Good coordination
--- NOTE | 2023-12-21 10:06 | ECG_ITS ---
Measurements Intervals [place] Rate: 76 P: 21 CO: 241 QRS: -26 QRSD: 166 T: 117 QT: 458 Avg RR: 785 QTc: 488 QTcB: 516 QTcF: 496 Interpretive Statements SINUS RHYTHM WITH FIRST DEGREE AV BLOCK LEFT BUNDLE BRANCH BLOCK [120+ ms QRS DURATION, 80+ ms Q/S IN V1/V2, 85+ ms R IN I/aVL/V5/V6} ABNORMAL ECG SEE SCANNED COPY FOR SIGNATURE MTDD
[2023-12-21 10:08] LABS: Add Urine Microscopic? NO
[2023-12-21 10:13] VITALS: BP 143/78; PULSE 62; RESP 18; O2SAT 97
[2023-12-21] MEDS: CYCLOBENZAPRINE HCL 10 MG TABLET PO (10:16)
[2023-12-21] MEDS: KETOROLAC 15 MG/ML VIAL (*BKC) IV PUSH (10:16)
[2023-12-21 10:18] LABS: Basophils Absolute Auto 0.1 K/mm3 (0.0-0.1); Basophils Percent Auto 1.1 % (0.2-1.2); Eosinophils Absolute Auto 0.7 K/mm3 (0-0.3); Eosinophils Percent Auto 8.6 % (0-4.4); Hematocrit 40.9 % (37.0-47.0); Hemoglobin 13.5 g/dL (12.0-15.0); Immature Granulocyte Absolute 0.03 K/mm3 (0.00-0.031); Immature Granulocyte Percent A 0.4 % (0-0.5); Lymphocytes Absolute Auto 2.87 K/mm3 (0.9-3.2); Lymphocytes Percent Auto 35.7 % (18.3-44.2); Mean Corpuscular Hemoglobin 30.5 pg (26-34); Mean Corpuscular Volume 92.5 fl (80-100); Mean Platelet Volume 9.4 fl (7.4-10.4); Monocytes Absolute Auto 0.7 K/mm3 (0.1-0.6); Monocytes Percent Auto 9.2 % (2.6-8.5); Neutrophils Absolute Auto 3.6 K/mm3 (1.3-6.7); Platelet Count Result 239 k/mm3 (150-375); Red Blood Count 4.42 M/mm3 (4.2-5.4); Red Cell Distribution Width 12.9 % (11.5-14.5)
[2023-12-21 10:31] LABS: Alanine Aminotransferase 43 U/L (6-35); Albumin Level 4.1 g/dL (3.5-5.1); Alkaline Phosphatase 93 U/L (38-126); Anion Gap 5 mmol/L (4-12); Aspartate Amino Transferase 36 U/L (14-36); Bilirubin,Total 0.6 mg/dL (0.2-1.3); Blood Urea Nitrogen 12 mg/dL (7-17); Calcium 9.9 mg/dL (8.4-10.2); Carbon Dioxide 24 mmol/L (22-30); Chloride 110 mmol/L (98-107); Estimated Glomerular Filt Rate > 60; Glucose 106 mg/dL (65-110); Potassium 4.5 mmol/L (3.4-5.0); Sodium 139 mmol/L (137-145)
[2023-12-21 10:41] LABS: Troponin I < 0.012 ng/mL (0.000-0.034)
[2023-12-21 12:13] VITALS: BP 107/57; PULSE 63; RESP 18; O2SAT 99
--- NOTE | 2023-12-21 13:16 | ECG_ITS ---
Measurements Intervals [place] Rate: 56 P: 45 NM: 198 QRS: -13 QRSD: 82 T: 43 QT: 403 Avg RR: 1058 QTc: 395 QTcB: 391 QTcF: 395 Interpretive Statements SINUS BRADYCARDIA VOLTAGE CRITERIA FOR LVH [MEETS CRITERIA IN ONE OF: R(aVL), S(V1), R(V5), R(V5/V6)+S(V1)] POSSIBLE SEPTAL MYOCARDIAL INFARCTION, PROBABLY OLD [30 ms Q WAVE IN V1/V2] ABNORMAL ECG SEE SCANNED COPY FOR SIGNATURE MTDD
[2023-12-21 13:46] LABS: Troponin I < 0.012 ng/mL (0.000-0.034)
[2023-12-21 14:16] VITALS: BP 104/56; PULSE 54; RESP 18; O2SAT 97
== END 2023-12-21 14:17 | disposition home or self-care (01) ==
PROVIDERS: Emergency Provider Emergency Medicine; PCP Family Medicine
DX: M54.6 Pain in thoracic spine (principal); I10 Essential (primary) hypertension; E11.9 Type 2 diabetes mellitus without complications; E78.00 Pure hypercholesterolemia, unspecified; F17.210 Nicotine dependence, cigarettes, uncomplicated; Z95.5 Presence of coronary angioplasty implant and graft; Z79.82 Long term (current) use of aspirin; Z79.84 Long term (current) use of oral hypoglycemic drugs; R94.31 Abnormal electrocardiogram [ECG] [EKG]; R00.1 Bradycardia, unspecified
CPT/HCPCS: 36415; 71045; 80053; 81003; 84484; 85025; 93005; 96374; 99284; A9270; J1885

== ENCOUNTER 2024-04-13 14:54 | Outpatient (CLI) | payer OTHER, SELFPAY ==
--- NOTE | ~2024-04-13 | MM_ITS ---
EXAMINATION: MM screening [facility] BI w avinash HISTORY: Screening TECHNIQUE: Craniocaudal and mediolateral oblique 3-D tomosynthesis images were obtained and synthetic 2-D images were generated. CAD analysis was submitted and interpreted. COMPARISON: Comparison to multiple prior studies sequentially, with oldest reviewed study dated 03/2017. BREAST PARENCHYMAL COMPOSITION: There are scattered areas of fibroglandular density. FINDINGS: There is no evidence of suspicious mass, calcification, or architectural distortion to sugg est malignancy in either breast. There has been no suspicious interval change. IMPRESSION: 1. No mammographic evidence of malignancy. 2. Recommend routine screening mammography in one year. BI-RADS Category 1: Negative Reviewed, dictated and finalized at location B.
== END 2024-04-13 14:55 | disposition home or self-care (01) ==
LOC: ANHIMG 14:55
PROVIDERS: PCP Family Medicine; Visit Provider Obstetrics & Gynecology
DX: Z12.31 Encounter for screening mammogram for malignant neoplasm of breast (principal)
CPT/HCPCS: 77063; 77067